=== PATIENT | female | born 1960 | race African-American/Black ===

== ENCOUNTER 2021-04-21 09:47 | Inpatient (IN) | payer BC ==
[~2021-04-21] VITALS: Ht 172.7 cm; Wt 62.6 kg
[2021-04-21 10:09] VITALS: BP 213/131
[2021-04-21 13:13] LABS: ABSOLUTE LYMPHOCYTES 1.4 thou/uL (0.8-5.3); ABSOLUTE MONOCYTES 0.3 thou/uL (0.0-1.2); ABSOLUTE NEUTROPHILS 5.8 thou/uL (1.6-8.1); BASOPHILS 0.5 %; HEMATOCRIT 43.2 % (37.0-47.0); HEMOGLOBIN 13.6 gm/dL (12.0-15.0); LYMPHOCYTES 18.3 %; MCH 26.8 pg (26.0-34.0); MCHC 31.5 g/dL (28.0-37.0); MONOCYTES 3.6 %; MPV 8.4 fl. (7.2-11.1); NUCLEATED RBCS 0 /100WBC; PLATELET COUNT* 344 thou/uL (150-400); POLYS 77.6 %; RBC 5.08 mil/uL (4.20-5.00); RDW-CV 16.1 % (10.5-14.5); WBC 7.5 thou/uL (4.0-11.0)
[2021-04-21 13:21] LABS: CALCIUM 8.9 mg/dL (8.5-10.1); CREATININE 1.7 mg/dL (0.6-1.3); POTASSIUM 4.1 mmol/L (3.5-5.1)
[2021-04-21 13:32] LABS: ALBUMIN 3.4 g/dL (3.4-5.0); TOTAL BILIRUBIN 0.7 mg/dL (<0.1-1.0); TOTAL PROTEIN 8.3 g/dL (6.4-8.2)
--- NOTE | 2021-04-21 14:32 | EKG ---
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 Consultant: DSEd : 1960 Requested By: Elmira Li Order Number: [id number] MD: Hernan Espinoza Measurements Intervals [place] Rate: 114 P: 57 CA: 174 QRS: -8 QRSD: 90 T: 22 QT: 355 QTc: 489 Interpretive Statements Sinus tachycardia Probable left atrial enlargement Probable left ventricular hypertrophy Anterior Q waves, possibly due to LVH Baseline wander in lead(s) III,aVL No previous ECG available for comparison Electronically Signed On 04-21-2021 14:31:56 CDT by Herann Espinoza [email or web address] <ELECTRONICALLY SIGNED> By: Hernan Espinoza MD, FACC 04/21/21 1431 1255 1255 Hernan Espinoza MD, [facility] /EPI
[2021-04-21 15:56] VITALS: BP 197/113
[2021-04-21 18:29] VITALS: BP 192/115
[2021-04-21 20:00] VITALS: BP 157/79
[2021-04-22 00:17] VITALS: BP 161/83
--- NOTE | 2021-04-22 02:10 | NUR ---
PT ALERT ORIENTED. UP AD REINIER TO BR. BOOM STICK WORKER TRACING SR. DR MORRISSEY INTO SEE PT.
[2021-04-22 04:54] VITALS: BP 152/78
[2021-04-22 07:24] VITALS: BP 167/96
--- NOTE | 2021-04-22 07:36 | NUR ---
ASSUMED CARE OF PT THIS AM AROUND 0715- DROP WIRE OPERATOR IN PLACE ORDERED, TRACING SR- UPON ASSESSMENT PT NOTED TO BE RESTING IN BED, EYES CLOSED- PT A&O X4-CONT OF B/B- UP AD-REINIER IN ROOM, STEADY GAIT NOTED- VSS, O2 SAT 100% ON RA- LCTA/DIMINSHED IN BASES- ABD SOFT/FLAT/NON-TENDER, BS X4 QUADS- LAST BM REPORTED 04/21/21- IV NOTED TO RIGHT FA INTACT AND SL- PT DENIES ANY C/O PAIN- CALL LIGHT AND PERSONAL BELONGINGS WITH IN REACH- HOURLY ROUNDS IN PLACE R/T SAFETY/NEEDS- ALL NEEDS MET AT THIS TIME
--- NOTE | 2021-04-22 09:38 | NUR ---
CM ASSESSMENT: PT A&O, INDEPENDENT WITH ADL'S, AND DRIVES. PT RESIDES AT HOME WITH SPOUSE. PT USES 0 DME. PT HAS 0 HX OF HH OR SNF. CM WILL REMAIN AVAILABLE TO ASSIST AND FOLLOW NEEDED.
[2021-04-22 11:30] VITALS: BP 162/97
[2021-04-22 12:44] LABS: ABSOLUTE BASOPHILS 0.1 thou/uL (0.0-0.2); ABSOLUTE EOSINOPHILS 0.2 thou/uL (0.0-0.7); ABSOLUTE LYMPHOCYTES 1.2 thou/uL (0.8-5.3); ABSOLUTE MONOCYTES 0.9 thou/uL (0.0-1.2); ABSOLUTE NEUTROPHILS 6.5 thou/uL (1.6-8.1); BASOPHILS 0.6 %; EOSINOPHILS 1.9 %; HEMATOCRIT 39.8 % (37.0-47.0); HEMOGLOBIN 12.7 gm/dL (12.0-15.0); MCH 26.7 pg (26.0-34.0); MCHC 31.8 g/dL (28.0-37.0); MCV 84.1 fL (80.0-100.0); MONOCYTES 9.9 %; MPV 8.5 fl. (7.2-11.1); NUCLEATED RBCS 0 /100WBC; PLATELET COUNT* 314 thou/uL (150-400); POLYS 73.6 %; RBC 4.73 mil/uL (4.20-5.00); RDW-CV 15.9 % (10.5-14.5); WBC 8.8 thou/uL (4.0-11.0)
--- NOTE | 2021-04-22 12:52 | NUR ---
Nutrition: Pt admitted with CHF exac. Consult for 2# wt loss. Pt in ISOLATION. H/o CHF. Wt: 138#. Albumin 3.4, BG ok, BUN 30, cr 1.7. Pt on regular diet. RD restricted diet to 2gm Na. Pt is on daily wts. Will follow wts, po intake. Mild risk. F/u 04/27/21.
[2021-04-22 12:55] LABS: ALBUMIN 3.1 g/dL (3.4-5.0); CALCIUM 8.7 mg/dL (8.5-10.1); CREATININE 1.8 mg/dL (0.6-1.3); POTASSIUM 3.6 mmol/L (3.5-5.1); TOTAL BILIRUBIN 0.7 mg/dL (<0.1-1.0); TOTAL PROTEIN 7.4 g/dL (6.4-8.2)
[2021-04-22 16:00] VITALS: BP 186/104
--- NOTE | 2021-04-22 17:04 | EKG ---
[place] [address] ELECTROCARDIOGRAM REPORT Name: JESSICA [facility]ESS[facility] [address] ADM IN M.R.#: [id number] Admission: 04/21/21 Attend Phys: Guido Carrera Discharge: Date of : 56 Date of Service: 04/22/21 1011 Report #: [id number] THIS REPORT FOR: //name// [facility] Test Date: 2021-04-22 Test Time: 10:11:20 Pat Name: JESSICA KESSLER Department: Room: [address] Gender: F Supervisor Computer Operations: SHAHEED : 1960 Requested By: Luiza Ortiz Order Number: [id number] MD: Hernan Espinoza Measurements Intervals [place] Rate: 99 P: 73 MS: 191 QRS: -30 QRSD: 83 T: QT: 314 QTc: 403 Interpretive Statements Sinus rhythm Left atrial enlargement Left ventricular hypertrophy Anterior Q waves, possibly due to LVH Borderline T abnormalities, inferior leads Compared to ECG 04/21/2021 12:55:53 T-wave abnormality now present Sinus tachycardia no longer present Electronically Signed On 04-22-2021 17:04:04 CDT by Hernan Espinoza [email or web address] <ELECTRONICALLY SIGNED> By: Hernan Espinoza MD, FACC 04/22/21 1704 101 1011 Hernan Espinoza MD, FAC /EPI
--- NOTE | 2021-04-22 18:30 | 2DMMODE ---
[place] [address] 2 D/M-MODE ECHOCARDIOGRAM Name: JESSICA KESSLERRoom: M.218-P ADM IN M.R.#: [id number] Admission: 04/21/21 Attend Phys: Guido Carrera Discharge: Date of : 56 Date of Service: 04/22/21 1830 Report #: [id number] THIS REPORT FOR: cc: FAM - No family physician/PCP FAM - No family physician/PCP Hernan Espinoza MD [facility] ~ APPROVED REPORT Study performed: 04/22/2021 17:49:00 EXAM: Comprehensive 2D, Doppler, and color-flow Echocardiogram Patient Location: In-Patient Room #: 218 Status: routine BSA: 1.75 HR: 105 bpm BP: 162/97 mmHg Rhythm: NSR Other Information Study Quality: Good Indications Congestive Heart Failure 2D Dimensions IVSd: 12.25 (7-11mm) LVOT Diam: 19.31 (18-24mm) LVDd: 51.45 mm PWd: 12.01 (7-11mm) Ascending Ao: 25.90 (22-36mm) LVDs: 40.42 (25-40mm) Aortic Root: 27.13 mm Volumes Left Atrial Volume (Systole) LA ESV Index: 52.80 mL/m2 Aortic Valve AoV Peak Jesu.: 1.14 m/s AO Peak Gr.: 5.21 mmHg LVOT Max P.41 mmHg AO Mean Gr.: 2.78 mmHg LVOT Mean P.08 mmHg LVOT Max V: 0.78 m/s AO V2 VTI: 17.58 cm LVOT Mean V: 0.47 m/s POLO (VTI): 1.84 cm2 LVOT V1 VTI: 11.07 [place] [address] 2 D/M-MODE ECHOCARDIOGRAM Name: [facility] ADM IN M.R.#: [id number] Admission: 04/21/21 Attend Phys: Guido Carrera Discharge: Date of : 56 Date of Service: 04/22/21 1830 Report #: [id number] Mitral Valve E/A Ratio: 1.17 MV Decel. Time: 61.70 ms MV E Max Jesu.: 1.14 m/s MV PHT: 17.89 ms MVA (PHT): 12.29 cm2 TDI E/Lateral E': 12.67 Lateral E' Jesu.: 0.09 m/s Pulmonary Valve PV Peak Jesu.: 0.68 m/s PV Peak Gr.: 1.86 mmHg Tricuspid Valve RAP Estimate: 5.00 mmHg TR Peak Gr.: 22.00 mmHg RVSP: 27.00 mmHg PA Pressure: 27.00 mmHg Left Ventricle Left ventricle is dilated. There is global hypokinesis of the left ventricle. Mild concentric left ventricular hypertrophy. Left ventricular systolic function is severly decreased. LVEF is 25-30%. Grade IV - fixed restrictive diastolic dysfunction. Right Ventricle Right ventricle is dilated. The right ventricular systolic function is normal. Atria Left atrium is severely dilated. Right atrium is severely dilated. Aortic Valve Mild aortic valve sclerosis. No aortic regurgitation is present. There is no aortic valvular stenosis. Mitral Valve The mitral valve is normal in structure. Moderate mitral regurgitation. No evidence of mitral valve stenosis. Tricuspid Valve The tricuspid valve is normal in structure. Mild tricuspid regurgitation. No pulmonary hypertension[place] [address] 2 D/M-MODE ECHOCARDIOGRAM Name: [facility]ESS[facility]ER [facility]P [facility] IN ..#: [id number] Admission: 04/21/21 Attend Phys: Guido Carrera Discharge: Date of : 56 Date of Service: 04/22/21 1830 Report #: [id number] The pulmonary valve is normal in structure. There is no pulmonic valvular regurgitation. Great Vessels The aortic root is normal in size. IVC is normal in size and collapses >50% with inspiration. Pericardium Trace pericardial effusion. Large left pleural effusion. <Conclusion> Left ventricle is dilated. Mild concentric left ventricular hypertrophy. LVEF is 25-30%. Left atrium is severely dilated. Mild aortic valve sclerosis. Moderate mitral regurgitation. <ELECTRONICALLY SIGNED> By: Hernan Espinoza MD, FACC 04/22/211829 29 29 Hernan Espinoza MD, FACC /INF
[2021-04-22 20:00] VITALS: BP 180/96
[2021-04-23] VITALS: BP 161/91
--- NOTE | 2021-04-23 04:10 | NUR ---
PT A&O X 4. ON RA. BP HIGH. MEDS GIVEN ORDERED. NO C/O PAIN. NEGATIVE FOR COVID. UP INDEPENDENTLY IN ROOM. CALL LIGHT WITHIN REACH. WILL CONTINUE TO MONITOR.
[2021-04-23 04:18] LABS: HEMATOCRIT 37.2 % (37.0-47.0); HEMOGLOBIN 11.7 gm/dL (12.0-15.0); MCH 27.7 pg (26.0-34.0); MCHC 31.5 g/dL (28.0-37.0); MCV 87.9 fL (80.0-100.0); MPV 8.5 fl. (7.2-11.1); RBC 4.23 mil/uL (4.20-5.00); RDW-CV 16.7 % (10.5-14.5); WBC 8.8 thou/uL (4.0-11.0)
[2021-04-23 07:58] VITALS: BP 194/116
--- NOTE | 2021-04-23 10:03 | CON ---
[address] [address] CONSULTATION Name: KESSLERJESSICAMaria Esther KOEHLERELE Room: [address] IN .R.#: [id number] Admission: 04/21/21 Attend Phys: Nino Amor Discharge: Date of : 56 Report #: [id number] THIS REPORT FOR: cc: FAM - No family physician/PCP FAM - No family physician/PCP Hernan Espinoza MD [facility] ~ DATE OF CONSULTATION: 04/22/2021 HISTORY OF PRESENT ILLNESS: The patient is a 60-year-old black female who I was asked to see in the hospital today after she complained of having a cough. The patient has no previous history of heart disease. Recently, she has felt short of breath, weak. She has been coughing, no appetite. She did receive the COVID vaccine. Her finally brought her to the hospital yesterday. She is admitted for further evaluation and treatment. She has no previous history of cardiac test. She does note recently she has had some tightness in her chest, that is usually related to rest. It is not exertion related. There is no radiation of the pain. Denies palpitations, syncope. She has had no vomiting, diarrhea, blood in her stool. PAST MEDICAL HISTORY: She has had previous laparoscopy. No history of hypertension, diabetes, hyperlipidemia. MEDICATIONS: She is not on medication. ALLERGIES: NO KNOWN DRUG ALLERGIES. FAMILY HISTORY: Her mother had a rapid heart rate. SOCIAL HISTORY: She is . She and her live in [place]. No smoking, alcohol abuse. REVIEW OF SYSTEMS: No history of stroke, asthma, liver disease, kidney disease, cancer, psychiatric illness, chronic skin condition. PHYSICAL EXAMINATION: GENERAL: Revealed a middle-aged black female who appears in no distress. VITAL SIGNS: She had a blood pressure of 150/90, pulse 90. She is afebrile. HEENT: She was anicteric. Conjunctivae pink. Mucosa is moist. NECK: Veins not distended. No carotid bruits. Neck is supple. CHEST: Clear to auscultation. HEART: Regular rate and rhythm. No murmur. ABDOMEN: Soft. EXTREMITIES: Had no edema. SKIN: Warm and dry. NEUROLOGIC: [place] [address] CONSULTATION Name: JESSICA KESSLER Room: [address] IN [facility]#: [id number] Admission: 04/21/21 Attend Phys: Nino Amor Discharge: Date of : 56 Report #: [id number] LABORATORY DATA: Her ECG showed a sinus rhythm with nonspecific T-wave changes. Her chest x-ray in the Emergency Room last night showed mild cardiomegaly, mild interstitial changes. Her lab work, creatinine 1.8, alkaline phosphatase is 274. SGOT 59, bilirubin 0.7. Her SGPT was 91. Her high sensitivity troponin was 84. BNP 11,722, hemoglobin 12.7. Her COVID antigen stat test was negative. IMPRESSION AND RECOMMENDATIONS: 1. Pulmonary edema. Recommend Lasix. Check echocardiogram. 2. Bronchitis. 3. Chronic kidney disease. 4. Elevated liver function studies. <ELECTRONICALLY SIGNED> By: Hernan Espinoza MD, FACC 04/23/21 1003 1406 1845Dasue Espinoza MD, FACC /nt
[2021-04-23 10:23] LABS: ALBUMIN 2.7 g/dL (3.4-5.0); POTASSIUM 4.3 mmol/L (3.5-5.1); TOTAL BILIRUBIN 0.4 mg/dL (<0.1-1.0)
[2021-04-23 10:48] LABS: CALCIUM 8.5 mg/dL (8.5-10.1); CREATININE 1.7 mg/dL (0.6-1.3)
[2021-04-23 12:00] VITALS: BP 140/62
[2021-04-23 13:11] LABS: CHOLESTEROL 145 mg/dL (<200); HDL CHOLESTEROL 52 mg/dL (>40); LDL CHOLESTEROL 85 mg/dL (<100); SERUM ASSESSMENT Clear; TC:HDL 2.8 Ratio (Not establshd); TRIGLYCERIDE 44 mg/dL (<150); VLDL 9 mg/dL (<40)
[2021-04-23 16:00] VITALS: BP 151/89
--- NOTE | 2021-04-23 17:28 | NUR ---
PT EDUAR RESTING ON SIDE OF BED, VISITING WITH FAMILY AT BED SIDE- AUTOMOBILE CLUB INFORMATION CLERK NOTED WITH SR- IV TO RIGHT FA INTACT AND SL, IV ABT GIVEN THIS AM AND THEN D/C'D PER PHYSICIAN- BEPHRO CONSULT NOTED THIS SHIFT R/T KIDNEY MASS- LASIX 40MG BID ORDERED AND GIVEN THIS SHIFT PRESRIBED- LOSARTAN AND COREG ORDERED THIS AM PER CARDIO AND GIVEN PRESCRIBED WITH NOTED IMPROVEMENT IN BP THIS SHIFT- CHEST X-RAY COMPLETED THIS AM ORDERED WITH RESULTS NOTED IN [facility]- GOOD PO INTAKE NOTED THIS SHIFT WITH MEALS- DENIES ANY C/O PAIN- CALL LIGHT AND PERSONAL BELONGINGS WITH IN REACH- PT MAKES NEEDS KNOWN- ALL NEEDS MET AT THIS TIME
[2021-04-23 19:30] VITALS: BP 165/89
[2021-04-24 00:01] VITALS: BP 140/81
[2021-04-24 04:17] VITALS: BP 143/63
--- NOTE | 2021-04-24 06:00 | NUR ---
PT SLEPT MOST OF SHIFT. ASSESSMENT DOCUMENTED. MEDS GIVEN PER E-MAR. IV PATENT. NO REPORTS OF PAIN. PT ABLE TO MAKE NEEDS KNOWN. WILL CONTINUE WITH PLAN OF CARE.
[2021-04-24 06:29] LABS: CALCIUM 8.4 mg/dL (8.5-10.1); CREATININE 1.7 mg/dL (0.6-1.3); MAGNESIUM 1.9 mg/dL (1.8-2.4); POTASSIUM 3.5 mmol/L (3.5-5.1)
[2021-04-24 07:53] VITALS: BP 152/92
--- NOTE | 2021-04-24 09:02 | NUR ---
ASSUMED CARE OF PT THIS AM AROUND 714- WAX SPECIALIST IN PLACE ORDERED, TRACING SR- UPON ASSESSMENT PT NOTED TO BE RESTING IN BED- PT A&O X4- CONT OF B/B- UP AD-REINIER IN ROOM, STEADY GAIT NOTED- LCTA, DYSPNEA NOTED ON EXERTION- VSS, O2 SAT 100% ON RA- ABD SOFT/ROUND/NON-TENDER, BS X4 QUADS- LAST BM REPORTED X4 DAYS AGO, PT DENIES NEED FOR LAXATIVE AT THIS TIME- IV NOTED TO RIGHT FA INTACT AND SL- UROLOGY CONSULT NOTED THIS AM R/T RENAL MASS- PT DENIES ANY C/O PAIN- CALL LIGHT AND PESONAL BELONGINGS WITH IN REACH- PT MAKES NEEDS KNOWN- ALL NEEDS MET AT THIS TIME
[2021-04-24 11:25] VITALS: BP 163/92
--- NOTE | 2021-04-24 13:23 | CON ---
[address] [address] CONSULTATION Name: CHECOJESSICAASUNCION KOEHLERELE Room: [address] IN M.R.#: [id number] Admission: 04/21/21 Attend Phys: Nino Amor Discharge: Date of : 56 Report #: [id number] THIS REPORT FOR: cc: ALEX - Gricelda family physician/PCP ALEX - Gricelda family physician/PCP Erika Carvalho MD ~ DATE OF CONSULTATION: 04/23/2021 NEPHROLOGY CONSULTATION CONSULTING PHYSICIAN: Guido Carrera DO. REASON FOR CONSULTATION: Renal mass and elevated creatinine. HISTORY OF PRESENT ILLNESS: A 60-year-old female with no significant past medical history who was admitted with shortness of breath and pulmonary edema. She was seen by Cardiology, given Lasix and is feeling much better today. Her chest x-ray does not show any evidence of congestive heart failure or pneumonia today. She appears to be comfortable. During the course of her evaluation, she had a CT scan of her abdomen and it showed a complex left renal mass concerning for malignancy. She has no known history of kidney problems. She has not seen a doctor in some time. She is otherwise healthy. Denies any nausea, vomiting. No regular NSAIDs. She appears to be comfortable at present time. REVIEW OF SYSTEMS: Constitutional, psych, heme, eyes, ENT, respiratory, cardiac, GI, , endocrine, all negative except as documented above. PAST MEDICAL HISTORY: She has not been seeing a doctor on a regular basis, but she appears to have hypertension. She had a blood pressure of 213/131 when she came in. She has been started on blood pressure medication. FAMILY HISTORY: Nonpertinent for this 60-year-old female, but she does mention that her mother had kidney failure. SOCIAL HISTORY: No tobacco. CURRENT MEDICATIONS: Reviewed. PHYSICAL EXAMINATION: VITAL SIGNS: Blood pressure is 140/62, pulse 99, respirations 19, temperature 36.8. GENERAL: Showed no acute distress. HEENT: Eyes: Open. Ears: Externally normal. NECK: Supple. CARDIOVASCULAR: [place] [address] CONSULTATION Name: JESSICA KESSLER Room: [address] IN [facility]#: [id number] Admission: 04/21/21 Attend Phys: Nino Amor Discharge: Date of : 56 Report #: [id number] LUNGS: No crackles. ABDOMEN: Soft. MUSCULOSKELETAL: Nontender. PSYCHIATRIC: Awake, alert. LABORATORY DATA: White cell count 8.8, hemoglobin 11.7, platelets 280. Sodium 141, potassium 4.3, chloride 105, bicarbonate 21, BUN 30, creatinine 1.7, glucose 80. CK was 87, albumin 2.7. ASSESSMENT AND PLAN: 1. She had a CT scan of her abdomen which showed a complex mass in the left kidney, but was otherwise unrevealing with no evidence of hydronephrosis or stones. 2. Hypertension. 3. Cardiomyopathy with an EF of 25-30%. Cardiology is consulted. 4. Complex left renal mass, 12.5 cm in size, concerning for malignancy of the left kidney. PLAN: Renal function is stable. Cardiology is managing an antihypertensive and diuretic medication. She appears to be well compensated at this time. She will need outpatient renal followup for possible chronic kidney disease, but this appears to be stable at present time. Regarding the complex appearing left renal mass, she needs to see a urologist as soon as possible to have further evaluation of this done. Regarding her elevated creatinine, there is no indication for a kidney biopsy from that standpoint, but she will need urgent evaluation by urologist for the kidney mass that she has. She can follow up in [facility] in 1 month's time. No recommendations otherwise from my standpoint. I will sign off the case. Please call with any questions. <ELECTRONICALLY SIGNED> By: Erika Carvalho MD 04/24/21 1323 1233 17Erika Carvalho MD /nt
[2021-04-24 16:00] VITALS: BP 149/80
[2021-04-24 20:30] VITALS: BP 174/101
[2021-04-25] VITALS: BP 137/78
[2021-04-25 04:00] VITALS: BP 126/67
--- NOTE | 2021-04-25 08:16 | NUR ---
PT SLEPT MOST OF SHIFT. ASSESSMENT DOCUMENTED. MEDS GIVEN PER E-SEP. IV PATENT. NO REPORTS OF PAIN. PT INDEPENDENT IN ROOM. WILL CONTINUE WITH PLAN OF CARE.
[2021-04-25 08:30] VITALS: BP 137/72
[2021-04-25] MEDS ORDERED: SPIRONOLACTONE25 MG PO (09:31)
[2021-04-25] MEDS ORDERED: COZAAR 50 MG TA50 M1 PO (09:31)
[2021-04-25] MEDS ORDERED: COREG6.25 MG PO (09:31)
[2021-04-25] MEDS ORDERED: FUROSEMIDE20 MG/2 ML IVPUSH (09:31)
[2021-04-25 12:06] VITALS: BP 137/72
--- NOTE | 2021-04-25 14:07 | NUR ---
ASSUMED PT CARE AT 0730. PT IS A&0X4. PLEASANT AND COOPERATIVE. ASSESSMENT COMPLETED, PT DENIES ANY DISCOMFORT OR CONCERNS. MEDICATIONS ADMINISTERED ORDERED. NEW ORDERS TO DISCHARGE PT TO HOME.IV DC'D AND HEART MONITOR REMOVED. ALL BELONGINGS WITH PT. DISCHARGE ORDERS REVIEWED WITH PT AND EDUCATION GIVEN WITH COPIES FOR EACH NEW MEDICATION. PT TRANSPORTED VIA WC BY NURSING STAFF TO EXIT VIA CAR WITH SPOUSE.
== END 2021-04-25 12:00 | disposition home or self-care (01) | DRG 291 ==
LOC: M.ERS 09:47 → M.TBA-ER 11:26 → M.2W 11:26
PROVIDERS: Internal Medicine; Internal Medicine Cardiovascular Disease; Physician Assistant; ADMIT Internal Medicine; ATTEND Internal Medicine
DX: I13.0 Hypertensive heart and chronic kidney disease with heart failure and stage 1 through stage 4 chronic kidney disease, or unspecified chronic kidney disease (principal); I50.21 Acute systolic (congestive) heart failure; N17.0 Acute kidney failure with tubular necrosis; I47.1 Supraventricular tachycardia; C64.9 Malignant neoplasm of unspecified kidney, except renal pelvis; R74.01 Elevation of levels of liver transaminase levels; Z20.822 Contact with and (suspected) exposure to COVID-19; I16.0 Hypertensive urgency; I42.9 Cardiomyopathy, unspecified; N18.9 Chronic kidney disease, unspecified; J40 Bronchitis, not specified as acute or chronic

== ENCOUNTER 2021-05-10 12:04 | Emergency (ER) | payer BC ==
[~2021-05-10] VITALS: Ht 172.7 cm; Wt 58.1 kg
[~2021-05-10 12:04] MED LIST: COREG6.25 MG PO; COZAAR 50 MG TA50 M1 PO; FUROSEMIDE20 MG/2 ML IVPUSH; SPIRONOLACTONE25 MG PO
[2021-05-10 12:44] LABS: ABSOLUTE BASOPHILS 0.1 thou/uL (0.0-0.2); ABSOLUTE EOSINOPHILS 0.1 thou/uL (0.0-0.7); ABSOLUTE LYMPHOCYTES 0.8 thou/uL (0.8-5.3); ABSOLUTE MONOCYTES 0.6 thou/uL (0.0-1.2); ABSOLUTE NEUTROPHILS 4.4 thou/uL (1.6-8.1); BASOPHILS 0.9 %; EOSINOPHILS 2.1 %; HEMOGLOBIN 13.1 gm/dL (12.0-15.0); LYMPHOCYTES 13.7 %; MCH 26.3 pg (26.0-34.0); MCHC 31.2 g/dL (28.0-37.0); MCV 84.2 fL (80.0-100.0); MONOCYTES 9.9 %; MPV 8.6 fl. (7.2-11.1); NUCLEATED RBCS 0 /100WBC; PLATELET COUNT* 267 thou/uL (150-400); POLYS 73.4 %; RBC 4.99 mil/uL (4.20-5.00); RDW-CV 16.3 % (10.5-14.5); WBC 5.9 thou/uL (4.0-11.0)
[2021-05-10 13:03] LABS: CREATININE 0.3 mg/dL (0.6-1.3); POTASSIUM 4.6 mmol/L (3.5-5.1)
[2021-05-10 13:07] LABS: TOTAL BILIRUBIN 0.5 mg/dL (<0.1-1.0); TOTAL PROTEIN 8.4 g/dL (6.4-8.2)
[2021-05-10 13:12] LABS: CALCIUM 9.2 mg/dL (8.5-10.1)
[2021-05-10 13:29] VITALS: BP 159/77
--- NOTE | 2021-05-12 08:03 | EKG ---
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 : 1960 Requested By: Yung Busch Order Number: [id number] MD: Luciano Ambrosio Measurements Intervals [place] Rate: 58 P: 59 MO: 213 QRS: -10 QRSD: 90 T: 20 QT: 457 QTc: 449 Interpretive Statements Sinus rhythm Borderline prolonged MO interval Left atrial enlargement LVH with secondary repolarization abnormality Anterior Q waves, possibly due to LVH Compared to ECG 04/22/2021 10:11:20 Early repolarization now present T-wave abnormality no longer present Electronically Signed On 05-12-2021 8:03:32 CDT by Luciano Ambrosio [email or web address] <ELECTRONICALLY SIGNED> By: Luciano Ambrosio MD, FACC 05/12/21 0803 1231 1231 Luciano Ambrosio MD, FAC /EPI
[2021-05-12] MEDS ORDERED: LASIX 40 MG TAB40 MG PO (15:55)
== END 2021-05-10 13:30 | disposition home or self-care (01) ==
LOC: M.ERS 12:04
PROVIDERS: Family Medicine
DX: R42 Dizziness and giddiness (principal); H53.8 Other visual disturbances; R11.0 Nausea; I10 Essential (primary) hypertension; Z79.899 Other long term (current) drug therapy